=== PATIENT | female | born 1995 | race Caucasian/White ===

== ENCOUNTER 2018-03-30 09:27 | Emergency (ER) | payer SELFPAY ==
[2018-03-30] MEDS ORDERED: Iopamidol 370 76% 100 ML VIAL ONE (09:39)
[2018-03-30] MEDS ORDERED: Sodium Chloride 0.9% 1,000 ML ONE (10:26)
[2018-03-30 10:54] LABS: Bilirubin Negative (Negative); Blood, Urine Trace (Negative); Glucose, Urine (Dipstick) Negative (Negative); Leukocyte Small (Negative); Nitrite Positive (Negative); Protein, Urine (Dipstick) 30 mg/dL (Neg-Trace)
[2018-03-30 10:56] LABS: #Lymphocytes 1.4 thou/uL (1.20-3.40); #Monocytes 1.2 thou/uL (0.11-0.59); #Neutrophils 10.1 thou/uL (1.40-6.50); %Basophils 0.3 % (0.0-1.0); %Eosinophils 0.4 % (0.0-10.0); %Lymphocytes 10.6 % (21.0-51.0); %Monocytes 9.2 % (0.0-10.0); %Neutrophils 79.5 % (42.0-75.0); Hemoglobin 14.7 g/dL (12.0-16.0); Mean Corpuscular HGB CONC 33.4 g/dL (32.0-36.0); Mean Corpuscular Hemoglobin 30.5 pg (27.0-31.0); Mean Corpuscular Volume 91.5 fL (78.0-98.0); Mean Platelet Volume 9.6 fL (7.4-10.4); Platelet Count 158 thou/uL (130-400); RBC Distribution Width 10.7 % (11.5-14.5); Red Blood Cell (RBC) Count 4.83 mill/uL (4.20-5.40); White Blood Cell (WBC) Count 12.7 thou/uL (4.8-10.8)
[2018-03-30 10:56] LABS: Clarity Hazy (Clear)
[2018-03-30 10:57] LABS: Pregnancy Test - Urine (BHCG) Negative (Negative); Pregu Control Background? CLEAR/WHITE (CLR/WHITE); Pregu Control Bar Appear? YES (CONTROL BAR)
[2018-03-30 11:00] LABS: Bacteria/HPF 3+ HPF (None Seen); Squamous Epithelial 0-3 HPF (0-3); WBC/HPF 21-50 HPF (0-3)
[2018-03-30 11:09] LABS: Acetaminophen Less than 6.0 mcg/mL (10.0-30.0); Alcohol Less than 10 mg/dL (Less than 10); Salicylate Less than 8.0 mg/dL (15.0-30.0)
[2018-03-30 11:11] LABS: ALT (SGPT) 16 U/L (8-55); AST (SGOT) 20 U/L (5-34); Alkaline Phosphatase 82 U/L (40-150); Anion Gap 11 mmol/L (10-20); BUN (Urea Nitrogen) 8 mg/dL (7.0-18.7); Bilirubin, Total 0.5 mg/dL (0.2-1.2); Calc. Creatinine Clearance 0 mL/min (70-130); Calcium 9.4 mg/dL (7.8-10.44); Carbon Dioxide 24 mmol/L (22-29); Chloride 106 mmol/L (98-107); Estimated GFR-MDRD 89; Globulin 2.3 g/dL (2.4-3.5); Glucose 101 mg/dL (70-105); Potassium 3.7 mmol/L (3.5-5.1); Protein, Total 6.3 g/dL (6.0-8.3); Sodium 137 mmol/L (136-145)
[2018-03-30] MEDS ORDERED: Naproxen 500 MG TAB ONE (12:33)
--- NOTE | 2018-03-30 13:27 | CT ---
ABDOMEN CT WITH CONTRAST CT PELVIS WITH CONTRAST: HISTORY: Pain.UTI. COMPARISON: None. FINDINGS: ABDOMEN CT: Lung bases are clear. Normal heart size. No pericardial effusion. Visualized aorta has a normal ca liber. No periaortic fat stranding. Portal vein is patent. Liver, spleen, pancreas, and adrenal glands have appropriate enhancement. Unremarkable gallbladder. Decreased enhancement involving the upper pole of the right kidney with a striate appearance suggesti ng a striate nephrogram phase. Correlate for pyelonephritis. No evidence of left or right-sided obs tructive uropathy. Mild enhancement involving the proximal right ureter. No mesenteric mass, lymphadenopathy, free air, or free fluid. Limited evaluation of the alimentary canal by lack of oral contrast. No evidence of bowel obstructio n. Multiple normal-caliber small bowel loops. Ileocecal junction is normal. Normal caliber appendi x. Unremarkable colon. Occasional diverticulum. No diverticulitis. CT PELVIS: No mass. Uterus and adnexal structures are unremarkable. A small amount of free fluid in the pelvis . Unremarkable urinary bladder. No lytic or blastic lesions in the osseous structures. IMPRESSION: Correlate for right-sided pyelonephritis. POS: [facility]
== END 2018-03-30 12:55 | disposition home or self-care (01) ==
LOC: NAV ERS 09:27
DX: N12 Tubulo-interstitial nephritis, not specified as acute or chronic (principal); J10.1 Influenza due to other identified influenza virus with other respiratory manifestations; N39.0 Urinary tract infection, site not specified; F17.210 Nicotine dependence, cigarettes, uncomplicated
CPT/HCPCS: 74177; 80053; 80307; 81003; 81015; 81025; 85025; 96360; J7050; Q9967